=== PATIENT | female | born 1985 | race Caucasian/White ===

== ENCOUNTER 2017-05-05 08:46 | Inpatient (IN) | payer OTHER ==
[~2017-05-05] VITALS: Ht 172.7 cm; Wt 112.0 kg
[~2017-05-05 08:46] MED LIST: CALCIUM 600 +1 EA13 PO; COLACE100 MG PO; ENDOCET 5-3251 EACH PO; IBUPROFEN800 MG PO; PRENATAL FORMU1 EAC5 PO; SYSTANE BALANCE10 ML BOTH EYES; VITAMIN C1000 MG PO; ZYRTEC10 M3 PO
[2017-05-05 12:37] VITALS: BP 104/64
[2017-05-05 13:51] VITALS: BP 101/58
[2017-05-05 14:36] LABS: EOSINOPHIL (%) 0.2 % (0-5); HEMATOCRIT 43.1 % (36.0-46.0); IMMATURE GRANULOCYTE (%) 0.5 % (0.0-0.7); INSTRUMENT ABS NEUTROPHIL CT 6.3 K/uL; LYMPHOCYTE COUNT 1.5 K/uL (1.0-2.8); MCH 29.2 PG (29.0-34.0); MCHC 32.5 G/DL (30.0-36.0); MCV 89.8 FL (83-99); MEAN PLAT.VOLUME 10.6 uM^3 (9.5-12.4); MONOCYTE COUNT 0.5 K/uL (0-0.8); NEUTROPHIL (%) 75.5 % (45-76); NEUTROPHIL COUNT 6.3 K/uL (1.8-6.4); PLATELET COUNT 163 K/uL (156-360); RBC DIS.WIDTH-CV 14.1 % (11.8-14.6); RBC DIS.WIDTH-SD 46.5 % (39-53); WHITE BLOOD COUNT 8.4 K/uL (4.1-10.2)
[2017-05-05] MEDS ORDERED: IBUPROFEN800 MG PO (17:03)
[2017-05-05] MEDS ORDERED: ENDOCET 5-3251 EACH PO (17:03)
[2017-05-05 18:27] VITALS: BP 116/75
[2017-05-05 19:32] VITALS: BP 120/66
[2017-05-05 20:43] VITALS: BP 107/55
[2017-05-05 22:23] VITALS: BP 103/65
[2017-05-06] VITALS (8 sets, daily range): BP systolic 91–110; BP diastolic 51–68
[2017-05-06 06:55] LABS: EOSINOPHIL (%) 0.1 % (0-5); HEMATOCRIT 37.1 % (36.0-46.0); IMMATURE GRANULOCYTE (%) 0.4 % (0.0-0.7); IMMATURE GRANULOCYTE COUNT 0.1 K/uL; LYMPHOCYTE COUNT 1.7 K/uL (1.0-2.8); MCH 29.3 PG (29.0-34.0); MCHC 32.9 G/DL (30.0-36.0); MEAN PLAT.VOLUME 10.5 uM^3 (9.5-12.4); NEUTROPHIL (%) 79.8 % (45-76); PLATELET COUNT 152 K/uL (156-360); RBC DIS.WIDTH-CV 13.9 % (11.8-14.6); RBC DIS.WIDTH-SD 45.2 % (39-53); RED BLOOD COUNT 4.17 M/uL (3.80-5.20); WHITE BLOOD COUNT 13.8 K/uL (4.1-10.2)
[2017-05-07 03:00] VITALS: BP 106/51
[2017-05-07 07:26] VITALS: BP 114/70
== END 2017-05-07 11:48 | disposition home or self-care (01) | DRG 765 ==
LOC: 2SOUTH 08:46 → 2WEST 12:14
PROVIDERS: Obstetrics & Gynecology
PROC: 10D00Z1 Extraction of Products of Conception, Low, Open Approach (ICD-10-PCS; principal; 2017-05-05)
DX: O36.63X0 Maternal care for excessive fetal growth, third trimester, not applicable or unspecified (principal); O48.0 Post-term pregnancy; Z3A.40 40 weeks gestation of pregnancy; Z37.0 Single live birth; Q62.0 Congenital hydronephrosis
CPT/HCPCS: 85025; 86900; 86901; J0690; J2274; J2405; J7120